=== PATIENT | female | born 1960 | race Caucasian/White ===

== ENCOUNTER 2018-11-10 21:35 | Emergency (ER) | payer OTHER ==
--- NOTE | 2018-11-10 22:21 | ED ---
General Adult HPI - General Chief complaint: Extremity Problem,Nontraumatic Stated complaint: Rt hand numbness Time Seen by Provider: 11/10/18 21:49 Source: patient Mode of arrival: ambulatory Limitations: no limitations - History of Present Illness Initial comments: Dictation was produced using [employer] dictation software. please excuse any grammatical, word or spelling errors. Chief Complaint:-year-old female past history of squamous cell carcinoma and marijuana abuse presents with right hand numbness History of Present Illness: 88-year-old female presents with right hand numbness. Patient states that approximate 45 minutes prior to arrival she began expressing the symptoms. She is brushing her hair when all of a sudden she had some numbness to her right hand. Causing her to drop the brush. Patient has history of squamous cell carcinoma. Patient has had poor follow-up with primary care physician's. She's been having on managed outpatient hypertension. Patient's history is so carcinoma. Patient does smoke marijuana regularly for appetite stimulant. She states that her symptoms slightly improved. She reports that there are no pins and needle sensations over still feels abnormal. The ROS documented in this emergency department record has been reviewed and confirmed by me. Those systems with pertinent positive or negative responses have been documented in the HPI. All other systems are other negative and/or noncontributory. PHYSICAL EXAM: General Impression: Alert and oriented x3, not in acute distress HEENT: Normocephalic atraumatic, extra-ocular movements intact, pupils equal and reactive to light bilaterally, mucous membranes moist. Cardiovascular: Heart regular rate and rhythm, S1&S2 audible, no murmurs, rubs or gallops Chest: Lungs clear to auscultation bilaterally, no rhonchi, no wheeze, no rales Abdomen: Bowel sounds present, abdomen soft, non-tender, non-distended, no organomegaly Musculoskeletal: Pulses present and equal in all extremities, no peripheral edema Motor: Power 5/5 bilaterally, no focal deficits noted Neurological: CN II-XII grossly intact, no focal motor or sensory deficits noted , no facial droop, normal finger to nose, no aphasia. Skin: Intact with no visualized rashes Psych: Normal affect and mood ED course: 58-year-old female with right hand numbness. Vital shows blood pressure 190/99, worse vital signs within acceptable limits. Patient's clinical presentation mildly suspicious of stroke or culture activated. Patient is not a TPA candidate. Patient given an initial NIH of 1. Discussed patient case of stroke neurologist.Laboratory evaluation obtained. CBC, coag panel, metabolic panel is unremarkable. Computed tomography scan of the head and chest x-ray was unremarkable. Patient still had persistent symptoms in her right upper extremity. She states that the symptoms are improved over there is still some symptoms in her right index finger. Discussed patient case with Dr. Hackett who is production trainer for [facility] recommends patient be transferred to [facility] for neurology service. Discussed patient case with Dr. Su who asked me series of questions and did not fill comfortable excepting a ER to ER transfer, he recommended patient be transferred to [facility] or other facility. He did not give me a clear reason why he is not willing to accept here to ER transfer. Discussed patient case with Kenyatta melton who is willing to accept direct admission to the floor if there is an admitting physician. We discussed patient case with Dr. Hackett of [facility] who is agreeable to direct admission. Given patient's symptomatology there is some concern that patient's symptoms reflect CVA given persistent neurologic symptoms. Patient's blood pressure is elevated at 187/85. Given that there is some suspicion of CVA no antihypertensive medications indicated at this time. Patient be transferred via private vehicle. She can be transported by family members who are reliable. Later on administrative acid conditioner callback for room number. EKG interpretation: Ventricular rate 85, normal sinus rhythm, NE interval 180, care 74, QTC 428. No NE prolongation, no QTC prolongation, no ST or T-wave changes noted. Overall, this EKG is unremarkable - Related Data Home Medications Medication Instructions Recorded Confirmed No Known Home Medications 11/10/18 11/10/18 Allergies Allergy/AdvReac Type Severity Reaction Status Date / Time codeine AdvReac Nausea & Verified 11/10/18 22:26 Vomiting Review of Systems ROS Statement: Those systems with pertinent positive or pertinent negative responses have been documented in the HPI. ROS Other: All systems not noted in ROS Statement are negative. Past Medical History Past Medical History: Cancer Additional Past Medical History / Comment(s): Squamous cell carcinoma of neck., wpw History of Any Multi-Drug Resistant Organisms: None Reported Additional Past Surgical History / Comment(s): Neck, heart surgery, WPW Past Psychological History: No Psychological Hx Reported Smoking Status: Former smoker Past Alcohol Use History: None Reported Past Drug Use History: Marijuana General Exam Limitations: no limitations Course Vital Signs 11/10/18 11/10/18 11/10/18 21:37 22:05 22:15 Temperature 97.7 F Pulse Rate 76 80 81 Respiratory 18 18 16 Rate Blood Pressure 190/99 194/92 155/103 O2 Sat by Pulse 98 97 97 Oximetry 11/10/18 11/10/18 11/10/18 22:30 22:38 23:00 Temperature Pulse Rate 77 67 69 Respiratory 18 18 18 Rate Blood Pressure 166/95 166/95 157/85 O2 Sat by Pulse 97 97 97 Oximetry 11/10/18 23:46 Temperature Pulse Rate 74 Respiratory 18 Rate Blood Pressure 187/85 O2 Sat by Pulse 94 L Oximetry Medical Decision Making - Lab Data Result diagrams: 11/10/18 22:24 11/10/18 22:24 Lab Results 11/10/18 11/10/18 11/10/18 Range/Units 22:24 22:24 22:24 WBC 8.7 (3.8-10.6) k/uL RBC 4.80 (3.80-5.40) m/uL Hgb 13.6 (11.4-16.0) gm/dL Hct 42.7 (34.0-46.0) % MCV 88.9 (80.0-100.0) fL MCH 28.4 (25.0-35.0) pg MCHC 31.9 (31.0-37.0) g/dL RDW 13.7 (11.5-15.5) % Plt Count 330 (150-450) k/uL Neutrophils % 56 % Lymphocytes % 31 % Monocytes % 6 % Eosinophils % 4 % Basophils % 1 % Neutrophils # 4.9 (1.3-7.7) k/uL Lymphocytes # 2.7 (1.0-4.8) k/uL Monocytes # 0.6 (0-1.0) k/uL Eosinophils # 0.3 (0-0.7) k/uL Basophils # 0.1 (0-0.2) k/uL PT (9.0-12.0) sec INR (<1.2) APTT (22.0-30.0) sec Sodium 140 (137-145) mmol/L Potassium 3.8 (3.5-5.1) mmol/L Chloride 103 (98-107) mmol/L Carbon Dioxide 28 (22-30) mmol/L Anion Gap 9 mmol/L BUN 14 (7-17) mg/dL Creatinine 0.71 (0.52-1.04) mg/dL Est GFR (CKD-EPI)AfAm >90 (>60 ml/min/1.73 sqM) Est GFR (CKD-EPI)NonAf >90 (>60 ml/min/1.73 sqM) Glucose 141 H (74-99) mg/dL Calcium 10.1 (8.4-10.2) mg/dL Total Bilirubin 0.4 (0.2-1.3) mg/dL AST 32 (14-36) U/L ALT 34 (9-52) U/L Alkaline Phosphatase 98 (38-126) U/L Total Creatine Kinase 63 (30-135) U/L CK-MB (CK-2) 1.1 (0.0-2.4) ng/mL CK-MB (CK-2) Rel Index 1.7 Troponin I <0.012 (0.000-0.034) ng/mL Total Protein 7.3 (6.3-8.2) g/dL Albumin 4.5 (3.5-5.0) g/dL 11/10/18 Range/Units 22:24 WBC (3.8-10.6) k/uL RBC (3.80-5.40) m/uL Hgb (11.4-16.0) gm/dL Hct (34.0-46.0) % MCV (80.0-100.0) fL MCH (25.0-35.0) pg MCHC (31.0-37.0) g/dL RDW (11.5-15.5) % Plt Count (150-450) k/uL Neutrophils % % Lymphocytes % % Monocytes % % Eosinophils % % Basophils % % Neutrophils # (1.3-7.7) k/uL Lymphocytes # (1.0-4.8) k/uL Monocytes # (0-1.0) k/uL Eosinophils # (0-0.7) k/uL Basophils # (0-0.2) k/uL PT 9.8 (9.0-12.0) sec INR 0.9 (<1.2) APTT 26.3 (22.0-30.0) sec Sodium (137-145) mmol/L Potassium (3.5-5.1) mmol/L Chloride (98-107) mmol/L Carbon Dioxide (22-30) mmol/L Anion Gap mmol/L BUN (7-17) mg/dL Creatinine (0.52-1.04) mg/dL Est GFR (CKD-EPI)AfAm (>60 ml/min/1.73 sqM) Est GFR (CKD-EPI)NonAf (>60 ml/min/1.73 sqM) Glucose (74-99) mg/dL Calcium (8.4-10.2) mg/dL Total Bilirubin (0.2-1.3) mg/dL AST (14-36) U/L ALT (9-52) U/L Alkaline Phosphatase (38-126) U/L Total Creatine Kinase (30-135) U/L CK-MB (CK-2) (0.0-2.4) ng/mL CK-MB (CK-2) Rel Index Troponin I (0.000-0.034) ng/mL Total Protein (6.3-8.2) g/dL Albumin (3.5-5.0) g/dL Disposition Clinical Impression: Right hand paresthesia Disposition: OTHER INSTITUTION NOT DEFINED Condition: Fair Referrals: Verito Lim MD [Primary Care Provider] - 1-2 days Time of Disposition: 00:06 - Out of Hospital Transfer - Req. Specs Out of Hospital Transfer - Requested Specifics: Other Emergency Center (direct admit [place] [facility])
--- NOTE | 2018-11-10 22:28 | CT ---
EXAM: CT Head Without Intravenous Contrast CLINICAL HISTORY: ITS.REASON CT Reason: Neuro Deficits TECHNIQUE: Axial computed tomography images of the head/brain without intravenous contrast. CTDI is 49.10 mGy and DLP is 1034 mGy-cm. This CT exam was performed using one or more of the following dose reduction techniques: automated exposure control, adjustment of the mA and/or kV according to patient size, and/or use of iterative reconstruction technique. COMPARISON: No relevant prior studies available. FINDINGS: Brain: Unremarkable. No hemorrhage. No significant white matter disease. No edema. Ventricles: Unremarkable. No ventriculomegaly. Bones/joints: Unremarkable. No acute fracture. Soft tissues: Unremarkable. Sinuses: Unremarkable as visualized. No acute sinusitis. Mastoid air cells: Unremarkable as visualized. No mastoid effusion. IMPRESSION: Normal head/brain CT.
[2018-11-10 22:37] LABS: Basophils # (A) 0.1 k/uL (0-0.2); Basophils % (A) 1 %; Eosinophils # (A) 0.3 k/uL (0-0.7); Eosinophils % (A) 4 %; HCT 42.7 % (34.0-46.0); HGB 13.6 gm/dL (11.4-16.0); Lymphocytes # (A) 2.7 k/uL (1.0-4.8); Lymphocytes % (A) 31 %; MCH 28.4 pg (25.0-35.0); MCHC 31.9 g/dL (31.0-37.0); MCV 88.9 fL (80.0-100.0); Monocytes # (A) 0.6 k/uL (0-1.0); Monocytes % (A) 6 %; Neutrophils # (A) 4.9 k/uL (1.3-7.7); Neutrophils % (A) 56 %; Platelet Count 330 k/uL (150-450); RDW 13.7 % (11.5-15.5); WBC 8.7 k/uL (3.8-10.6)
[2018-11-10] MEDS ORDERED: ASPIRIN 81 MG PO STA (22:42)
[2018-11-10 22:47] LABS: ALT 34 U/L (9-52); AST 32 U/L (14-36); Albumin 4.5 g/dL (3.5-5.0); Alkaline Phosphatase 98 U/L (38-126); Anion Gap 9 mmol/L; Blood Urea Nitrogen 14 mg/dL (7-17); Calcium 10.1 mg/dL (8.4-10.2); Carbon Dioxide 28 mmol/L (22-30); Chloride 103 mmol/L (98-107); Glucose 141 mg/dL (74-99); INR 0.9 (<1.2); Partial Thromboplastin Time 26.3 sec (22.0-30.0); Potassium 3.8 mmol/L (3.5-5.1); Prothrombin Time 9.8 sec (9.0-12.0); Sodium 140 mmol/L (137-145); Total Bilirubin 0.4 mg/dL (0.2-1.3); Total Protein 7.3 g/dL (6.3-8.2)
[2018-11-10 22:57] LABS: Creatine Kinase 63 U/L (30-135)
[2018-11-10 23:10] LABS: Creatine Kinase MB 1.1 ng/mL (0.0-2.4); Troponin I <0.012 ng/mL (0.000-0.034)
--- NOTE | 2018-11-10 23:27 | XR ---
EXAM: XR Chest, 1 View CLINICAL HISTORY: ITS.REASON XR Reason: altered mental status TECHNIQUE: Frontal view of the chest. COMPARISON: No relevant prior studies available. FINDINGS: Lungs: No consolidation. Biapical scarring. Nonspecific hilar fullness but no min enlargement. Pleural space: No pleural effusion or pneumothorax. Heart: No cardiomegaly. No mediastinal enlargement. Mediastinum: Trachea is unremarkable. Bones/joints: Unremarkable. Vasculature: Atherosclerotic calcifications of the ectatic thoracic aortic arch. IMPRESSION: No definite acute cardiopulmonary disease.
[2018-11-11 01:09] VITALS: BP 151/90; PULSE 68; RESP 17; TEMP 98.4
== END 2018-11-11 01:09 | disposition other institution (70) ==
LOC: EC 21:35
DX: R20.2 Paresthesia of skin (principal); Z85.828 Personal history of other malignant neoplasm of skin; Z87.891 Personal history of nicotine dependence; Z88.5 Allergy status to narcotic agent
CPT/HCPCS: 36415; 70450; 71045; 80053; 82550; 82553; 84484; 85025; 85610; 85730; 93005; 99285

== ENCOUNTER → 2020-11-04 | Outpatient (CLI) | payer OTHER ==
--- NOTE | 2020-11-22 09:06 | MM ---
Reason for exam: screening (asymptomatic). Last mammogram was performed 8 years and 7 months ago. History: Patient is postmenopausal and history of other cancer. Excisional biopsy, 2013. Physical Findings: A clinical breast exam by your physician is recommended on an annual basis and results should be correlated with mammographic findings. MG Screening Mammo w CAD Bilateral CC and MLO view(s) were taken. XCCL view(s) were taken of the right breast. Prior study comparison: April 14, 2012, mammogram, performed at [facility]. April 15, 2009, mammogram, performed at [facility]. The breast tissue is heterogeneously dense. This may lower the sensitivity of mammography. Previous mammotome biopsy in the right breast and in the left breast x 2. No significant changes when compared with prior studies. ASSESSMENT: Negative, BI-RAD 1 RECOMMENDATION: Routine screening mammogram of both breasts in 1 year.
== END | disposition home or self-care (01) ==
LOC: RADMAMWWP 16:38
PROVIDERS: ATTEND Family Medicine
DX: Z12.31 Encounter for screening mammogram for malignant neoplasm of breast (principal); Z85.89 Personal history of malignant neoplasm of other organs and systems
CPT/HCPCS: 77067

== ENCOUNTER → 2021-12-08 | Outpatient (CLI) | payer OTHER ==
--- NOTE | 2021-12-08 22:21 | CT ---
EXAMINATION TYPE: CT chest wo/w con DATE OF EXAM: 12/08/2021 COMPARISON: CT dated 07/11/2021 HISTORY: Spot on lung. Hx small squamous cell ca on neck CT DLP: 290.10 mGycm Automated exposure control for dose reduction was used. TECHNIQUE: CT scan of the chest is performed with IV Contrast, patient injected with 100 mL of Isovue 300. FINDINGS: LUNGS: Slightly larger spiculated lesion in the left lower lobe superior segment measuring 11 mm comp ared to 8.5 mm previously. The other similar spiculated lesion at the central portion of the right up per lobe is grossly stable measuring 7 mm. Elongated groundglass opacity at the posterior aspect of t he right lung base measuring up to 3.9 cm, appreciated previously. No new or progressive lung lesion otherwise. Persistent COPD changes, mainly seen in the upper lobes with bilateral apical pulmonary fi brotic changes and paraseptal emphysematous changes. Patent central airways. No pleural effusion. MEDIASTINUM: Cardiomegaly, please correlate with echocardiographic results. The pulmonary trunk measu res 2.7 cm. Arterial and coronary atherosclerotic plaques and calcifications. Severe stenosis of the proximal portion of the left subclavian artery yet patent distally. 12 mm precarinal lymph node ayala red to 10 mm previously. No other pathologically enlarged or progressive lymph nodes in the chest. OTHER: Hyperenhancing areas in the left side of the liver, possibly related to transient hepatic att enuation difference. 9 mm cyst at the posterior aspect of the pancreatic head, appreciated previously . Prominent right renal collecting system, distal obstruction cannot be excluded. Please correlate wi th renal function test. Further abdominal CT scan can be considered if clinically required. Previous median sternotomy. No gross aggressive bone lesion. Degenerative changes of the lower cervical spine. IMPRESSION: 1. Slightly larger left lower lobe superior segment lesion with stable right upper lobe lesion. Other pedroza no new or progressive lung lesion. 2. Slightly more prominent precarinal lymph node, attention follow-up. Consider correlation with PET scan results. No other definite pathologically enlarged lymph nodes in the chest. 3. The described hyper enhancing areas in the liver could be related to transient hepatic attenuation difference, suboptimally assessed by this CT scan. Further abdominal CT scan can be considered if cl inically required. Other incidental findings as described above.
== END | disposition home or self-care (01) ==
LOC: RADCTMAIN 17:23
PROVIDERS: ATTEND Radiology Radiation Oncology
DX: C34.12 Malignant neoplasm of upper lobe, left bronchus or lung (principal); R91.8 Other nonspecific abnormal finding of lung field
CPT/HCPCS: 71270; Q9967

== ENCOUNTER → 2022-03-23 | Outpatient (CLI) | payer OTHER ==
[2022-03-23 14:34] LABS: African American GFR (CKD) >90 (>60 ml/min/1.73 sqM); Blood Urea Nitrogen 16 mg/dL (7-17); Non-African American GFR(CKD) 78 (>60 ml/min/1.73 sqM)
--- NOTE | 2022-03-23 20:58 | CT ---
EXAMINATION TYPE: CT chest wo/w con DATE OF EXAM: 03/23/2022 COMPARISON: CT dated 12/08/2021 HISTORY: abnormal finding of lung field CT DLP: 205.60 mGycm Automated exposure control for dose reduction was used. TECHNIQUE: CT scan of the chest is performed without and with IV Contrast, patient injected with 100 mL of Isovu e 300. FINDINGS: LUNGS: Stable spiculated lesion in the left lower lobe superior segment measuring 11 mm. The other si milar spiculated lesion at the central portion of the right upper lobe is grossly stable measuring 7 mm. Elongated groundglass opacity at the posterior aspect of the right lung base measuring up to 2.5 cm compared to 3.9 cm. Focal infiltration/subtle fibrotic changes seen at the medial aspect of the le ft upper lobe posteriorly, possibly inflammatory/infectious, attention on follow-up. Persistent COPD changes, mainly seen in the upper lobes with bilateral apical pulmonary fibrotic changes and parasept al emphysematous changes. Patent central airways. No pleural effusion. MEDIASTINUM: The pulmonary trunk measures 2.6 cm. Arterial and coronary atherosclerotic plaques and c alcifications. Severe stenosis of the proximal portion of the left subclavian artery yet patent dista lly. 8 mm precarinal lymph node compared to 12 mm previously. No other pathologically enlarged or pro gressive lymph nodes in the chest. OTHER: Unchanged upper abdomen. Previous median sternotomy. No gross aggressive bone lesion. Degener ative changes of the lower cervical spine. IMPRESSION: 1. Stable left lower lobe superior segment lesion with stable right upper lobe lesion. Left upper lob e medial posterior area of infiltration/fibrotic changes which could represent an inflammatory/infect ious process, attention on follow-up. 2. Interval regression of the previously seen enlarged precarinal lymph node. No progressive lymphade nopathy in the chest. Other incidental findings as described above.
== END | disposition home or self-care (01) ==
LOC: RADCTMAIN 13:45
PROVIDERS: ATTEND Radiology Radiation Oncology
DX: R91.8 Other nonspecific abnormal finding of lung field (principal); R59.0 Localized enlarged lymph nodes
CPT/HCPCS: 82565; 84520; 71270; 36415; Q9967

== ENCOUNTER → 2022-06-19 | Outpatient (CLI) | payer OTHER ==
--- NOTE | 2022-06-20 08:01 | XR ---
EXAMINATION TYPE: XR KUB DATE OF EXAM: 06/19/2022 Comparison: None Clinical History: 62-year-old female bilateral flank pain and history of kidney stones, M54.50 Findings: Right lung base excluded from view. Left lung base appears clear. Supine imaging limited for assessme nt of free air. Gassy colon with mild overall snowboarding, mostly in the pelvis. Atherosclerotic gerardo cifications within the iliac arteries. Nonobstructive bowel gas pattern. Additional atherosclerotic c alcifications proximal abdominal aorta. Numerous pelvic phleboliths. Tubal ligation clips noted. Jessenia l content largely of spheres the renal shadows. Impression: Gassy colon. Bowel content largely obscures the renal shadows. Pelvic phleboliths. Atherosclerotic ca lcifications throughout.
== END | disposition home or self-care (01) ==
LOC: RADMRIMAIN 17:39
PROVIDERS: ATTEND Physician Assistant Medical
DX: I25.10 Atherosclerotic heart disease of native coronary artery without angina pectoris (principal); I87.8 Other specified disorders of veins; Z87.442 Personal history of urinary calculi
CPT/HCPCS: 74018

== ENCOUNTER → 2022-06-22 | Outpatient (CLI) | payer OTHER ==
--- NOTE | 2022-06-23 08:13 | CT ---
EXAMINATION TYPE: CT chest w con CT DLP: 105 mGycm, Automated exposure control for dose reduction was used. DATE OF EXAM: 06/22/2022 5:56 PM COMPARISON: CT chest 03/23/2022, 12/08/2021. CLINICAL INDICATION:Female, 62 years old with history of C34.12 Lung cancer; TECHNIQUE: Multiple axial images were obtained through the chest following the administration of 100 cc of Isovue 300. Coronal and sagittal reformats reviewed. FINDINGS: LUNGS/ PLEURA: Decrease in size of spiculated lesion in the left lower lobe superior segment measurin g 0.9 cm, previously 1.1 cm. Stable spiculated lesion at the central portion of the right upper lobe measuring 7 mm. Increased size of elongated groundglass opacity of the posterior aspect of the right lung base measuring 5.9 cm, previously 2.5 cm. Similar focal infiltration/subtle fibrotic changes see n of the medial aspect of the left upper lobe posteriorly which may represent an inflammatory/infecti ous process. Similar COPD changes with upper lobe predominance including pulmonary fibrotic changes a nd paraseptal emphysematous changes. No pneumothorax pleural effusion. No new pulmonary nodules. AIRWAY: Patent and unremarkable.. HEART: Size within normal limits. No pericardial effusion. Coronary arterial calcifications.. MEDIASTINUM: Stable 8 mm short axis precarinal lymph node. No other pathologically enlarged mediastin al or hilar lymph nodes. VASCULATURE: No aortic aneurysm. Atherosclerotic calcification of the aorta. Similar severe stenosis of the proximal portion left subclavian artery. MUSCULOSKELETAL: No acute osseous abnormalities. No aggressive osseous lesions. Median sternotomy wir es. SOFT TISSUES/LYMPH NODES: Unremarkable. LOWER NECK: No significant findings. UPPER ABDOMEN: No significant findings. IMPRESSION: 1. Decreased size of left lower lobe superior segment lesion with stable right upper lobe lesion. Inc reased size of posterior right lower lobe groundglass opacity which may represent an inflammatory/inf ectious process. Attention on follow-up. Unchanged left upper lobe medial posterior area of infiltrat ion/fibrotic changes which could represent inflammatory/infectious process. Attention on follow-up. 2. Stable subcentimeter precarinal lymph node. No progressive lymphadenopathy in the chest. 3. COPD changes.
== END | disposition home or self-care (01) ==
LOC: RADCTMAIN 17:16
PROVIDERS: ATTEND Radiology Radiation Oncology
DX: C34.12 Malignant neoplasm of upper lobe, left bronchus or lung (principal); J44.9 Chronic obstructive pulmonary disease, unspecified
CPT/HCPCS: 71260; Q9967

== ENCOUNTER 2022-07-22 07:28 | Emergency (ER) | payer OTHER ==
[2022-07-22 07:35] VITALS: TEMP 97.8
[2022-07-22] MEDS ORDERED: SODIUM CHLORIDE 0.9% 500 ML 500 ML IV STA (07:54)
[2022-07-22] MEDS ORDERED: SODIUM CHLORIDE 0.9% 1,000 ML IV STA (07:54)
[2022-07-22] MEDS ORDERED: KETOROLAC 15 MG/ML 1 ML VIAL IVP STA (07:55)
--- NOTE | 2022-07-22 07:59 | ED ---
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 Her stool pain is essentially sharp 8/10 severity no fevers chills nausea vomiting sweats no trauma reported. No other current complaints or modifying factors - Related Data Home Medications Medication Instructions Recorded Confirmed Aspirin EC [Ecotrin Low Dose] 81 mg PO DAILY 07/22/22 07/22/22 Previous Rx's Medication Instructions Recorded Potassium Chloride [Klor-Con M20] 20 meq PO DAILY #15 tab 07/22/22 Allergies Allergy/AdvReac Type Severity Reaction Status Date / Time codeine AdvReac Nausea & Verified 07/22/22 11:49 Vomiting Review of Systems ROS Statement: Those systems with pertinent positive or pertinent negative responses have been documented in the HPI. ROS Other: All systems not noted in ROS Statement are negative. Past Medical History Past Medical History: Cancer, Hypertension Additional Past Medical History / Comment(s): Squamous cell carcinoma of neck., Vides Parkinsons White Syndrome History of Any Multi-Drug Resistant Organisms: None Reported Additional Past Surgical History / Comment(s): Neck, heart surgery, WPW Past Psychological History: No Psychological Hx Reported Smoking Status: Former smoker Past Alcohol Use History: None Reported Past Drug Use History: Marijuana General Exam - General Exam Comments Initial Comments: This is a well-developed frail-appearing female who is awake alert oriented 4 Limitations: no limitations General appearance: alert, in no apparent distress Head exam: Present: atraumatic, normocephalic, normal inspection Eye exam: Present: normal appearance, PERRL, EOMI. Absent: scleral icterus, conjunctival injection, periorbital swelling ENT exam: Present: mucous membranes dry Neck exam: Present: normal inspection, full ROM. Absent: tenderness, meningismus, lymphadenopathy Respiratory exam: Present: normal lung sounds bilaterally. Absent: respiratory distress, wheezes, rales, rhonchi, stridor Cardiovascular Exam: Present: regular rate, normal rhythm, normal heart sounds. Absent: systolic murmur, diastolic murmur, rubs, gallop, clicks GI/Abdominal exam: Present: soft, normal bowel sounds. Absent: distended, tenderness, guarding, rebound, rigid Rectal exam: Present: deferred Extremities exam: Present: normal inspection, tenderness, normal capillary refill, other (Tenderness palpation of the sciatic outlet on the right side with tenderness palpation limited range of motion secondary to pain.). Absent: full ROM, pedal edema, joint swelling, calf tenderness Back exam: Present: normal inspection. Absent: tenderness, muscle spasm Neurological exam: Present: alert, oriented X3, CN II-XII intact Psychiatric exam: Present: normal affect, normal mood Skin exam: Present: warm, dry, intact, normal color. Absent: rash Course Vital Signs 07/22/22 07/22/22 07/22/22 07:32 10:00 12:29 Temperature 97.8 F Pulse Rate 92 88 94 Respiratory 16 18 16 Rate Blood Pressure 202/82 182/78 133/96 O2 Sat by Pulse 98 98 99 Oximetry - Reevaluation(s) Reevaluation #1: 07/22/22 11:17 Patient states she's feeling much improved at this time she is actively getting IV fluids and potassium at this time. Due to the presentation I did want to admit her to the hospital she does not want to be admitted this time she'll sec go home and follow-up with orthopedics palpation. Family members present and Is in agreement. Medical Decision Making - Medical Decision Making I did discuss the findings with the patient multiple family members. I did recommend admission the patient does not want be admitted at this time. To instill it to go home and follow palpation for evaluation of the hip pain. The presentation appears be consistent with sciatica or there is a CT finding of fluid around the hip patient has no fever the white blood cell count is elevated likely a reactive phenomenon. Does not appear to be infectious at this time patient agrees that she is on a stay he will follow-up outpatient she was hypokalemic did recommend oral medication and follow-up with her doctor and increase oral fluids. Patient does have increased range of motion with movement of the right hip now which she did not have earlier no pain with motion. She does have still some remaining pain on palpation of the sciatic fell at. - Lab Data Result diagrams: 07/22/22 08:03 07/22/22 08:03 Lab Results 07/22/22 07/22/22 07/22/22 Range/Units 08:03 08:03 08:03 WBC 13.6 H (3.8-10.6) k/uL RBC 4.68 (3.80-5.40) m/uL Hgb 13.5 (11.4-16.0) gm/dL Hct 41.6 (34.0-46.0) % MCV 88.8 (80.0-100.0) fL MCH 28.9 (25.0-35.0) pg MCHC 32.5 (31.0-37.0) g/dL RDW 13.3 (11.5-15.5) % Plt Count 327 (150-450) k/uL MPV 7.6 Neutrophils % 86 % Lymphocytes % 8 % Monocytes % 4 % Eosinophils % 1 % Basophils % 0 % Neutrophils # 11.7 H (1.3-7.7) k/uL Lymphocytes # 1.0 (1.0-4.8) k/uL Monocytes # 0.6 (0-1.0) k/uL Eosinophils # 0.1 (0-0.7) k/uL Basophils # 0.1 (0-0.2) k/uL Sodium 140 (137-145) mmol/L Potassium 3.0 L (3.5-5.1) mmol/L Chloride 102 (98-107) mmol/L Carbon Dioxide 27 (22-30) mmol/L Anion Gap 11 mmol/L BUN 11 (7-17) mg/dL Creatinine 0.60 (0.52-1.04) mg/dL Est GFR (CKD-EPI)AfAm >90 (>60 ml/min/1.73 sqM) Est GFR (CKD-EPI)NonAf >90 (>60 ml/min/1.73 sqM) Glucose 118 H (74-99) mg/dL Uric Acid 4.3 (3.7-7.4) mg/dL Calcium 9.3 (8.4-10.2) mg/dL Magnesium 1.6 (1.6-2.3) mg/dL Total Bilirubin 0.7 (0.2-1.3) mg/dL AST 32 (14-36) U/L ALT 25 (4-34) U/L Alkaline Phosphatase 117 (38-126) U/L Total Protein 7.0 (6.3-8.2) g/dL Albumin 4.6 (3.5-5.0) g/dL - Radiology Data Radiology results: report reviewed (Imaging reviewed as well as reports evidence of degenerative changes in the low back some fluid collection around the right hip please see the complete report), image reviewed Disposition Clinical Impression: Sciatica, Hypokalemia, Dehydration Disposition: HOME SELF-CARE Condition: Good Instructions (If sedation given, give patient instructions): Hypokalemia (ED), Dehydration (ED), Sciatica (ED) Prescriptions: Potassium Chloride [Klor-Con M20] 20 meq PO DAILY #15 tab Is patient prescribed a controlled substance at d/c from ED?: No Referrals: Shakira Way MD [Primary Care Provider] - 1-2 days Decision Date: 07/22/22 Decision Time: 13:00
[2022-07-22 08:16] LABS: Basophils # (A) 0.1 k/uL (0-0.2); Basophils % (A) 0 %; Eosinophils # (A) 0.1 k/uL (0-0.7); Eosinophils % (A) 1 %; HCT 41.6 % (34.0-46.0); HGB 13.5 gm/dL (11.4-16.0); Lymphocytes % (A) 8 %; MCH 28.9 pg (25.0-35.0); MCHC 32.5 g/dL (31.0-37.0); MCV 88.8 fL (80.0-100.0); Mean Platelet Volume 7.6; Monocytes # (A) 0.6 k/uL (0-1.0); Monocytes % (A) 4 %; Neutrophils # (A) 11.7 k/uL (1.3-7.7); Neutrophils % (A) 86 %; Platelet Count 327 k/uL (150-450); RBC 4.68 m/uL (3.80-5.40); RDW 13.3 % (11.5-15.5); WBC 13.6 k/uL (3.8-10.6)
[2022-07-22 08:25] LABS: ALT 25 U/L (4-34); AST 32 U/L (14-36); African American GFR (CKD) >90 (>60 ml/min/1.73 sqM); Albumin 4.6 g/dL (3.5-5.0); Alkaline Phosphatase 117 U/L (38-126); Anion Gap 11 mmol/L; Blood Urea Nitrogen 11 mg/dL (7-17); Calcium 9.3 mg/dL (8.4-10.2); Carbon Dioxide 27 mmol/L (22-30); Chloride 102 mmol/L (98-107); Glucose 118 mg/dL (74-99); Magnesium 1.6 mg/dL (1.6-2.3); Non-African American GFR(CKD) >90 (>60 ml/min/1.73 sqM); Sodium 140 mmol/L (137-145); Total Bilirubin 0.7 mg/dL (0.2-1.3)
--- NOTE | 2022-07-22 09:19 | CT ---
EXAMINATION TYPE: CT lumbar spine wo con, CT hip RT wo con DATE OF EXAM: 07/22/2022 COMPARISON: None HISTORY: 62-year-old female Pain, history of metastatic squamous cell cancer (accession [id number]), Ri ght hip pain, hx of metastatic squamous cell (accession [id number]) TECHNIQUE: Contiguous axial scanning of the lumbar spine and right hip without IV contrast. Coronal a nd sagittal reconstructions performed. CT DLP: 392.1 (accession [id number]), 250.5 (accession [id number]) mGycm Automated exposure control for dose reduction was used. FINDINGS: LUMBAR SPINE: Moderate to severe atherosclerotic calcifications throughout the abdominal aorta and iliac arteries w ith segmental moderate stenoses. Fullness of bilateral renal collecting systems. Correlate with patie nt's kidney function. There is generalized osteopenia. Vertebral body heights are preserved. Alignment is maintained. Moderate degenerative disc disease L4-L5 and mild to moderate elsewhere throughout the lumbar spine. Disc bulging is present multiple levels in the lumbar spine impressing on the ventral thecal sac but not contributing to any significant spinal canal stenosis. Facet arthropathy mid to lower lumbar spine. On the left, changes old and mild neuroforaminal stenoses at L3-L4 and L4-L5. On the right, changes result in minimal inferior neural foraminal narrowing at L2-L3 and L3-L4. No di screte lytic destruction is clearly identified. RIGHT HIP: There is mild to moderate degenerative joint space narrowing and marginal spurring at the right hip. We note some calcifications along the joint space possibly involving the articular cartilage there is also a moderate hip joint effusion. No bony destructive process, significant soft tissue abnormality, or acute fracture seen. IMPRESSION: LUMBAR SPINE: 1. Moderate degenerative disc disease throughout, greatest at L4-L5. Bulging discs are present. No la rge focal disc herniation or significant spinal canal stenosis. 2. Facet arthropathy mid to lower lumbar spine. No vertebral compression collapse or malalignment. Va riable minimal to mild bilateral neural foraminal narrowing as outlined above, left greater than righ t. 3. Fullness of the bilateral renal collecting systems may be transient. There is prominent fullness o f the bladder which may be contributing to this. Ensure that the patient is able to void normally. 4. Moderate to severe atherosclerotic changes throughout the abdominal aorta and iliac arteries. RIGHT HIP: 5. [id number] right hip OA. We note calcifications along the right hip joint space which may be seen with CPPD or gout. There is an accompanying moderate joint effusion. If concern for crystalline arthropathy, arthrocentesis can be considered. 6. Otherwise, no acute osseous abnormality seen.
[2022-07-22] MEDS ORDERED: POTASSIUM CHLORIDE 20 MEQ in WATER FOR INJECTION 1 100ML.BAG IVPB STA (10:01)
[2022-07-22 12:33] VITALS: BP 133/96; PULSE 94; RESP 16
== END 2022-07-22 13:24 | disposition home or self-care (01) ==
LOC: EC 07:28
DX: E86.0 Dehydration (principal); E87.6 Hypokalemia; I10 Essential (primary) hypertension; Z87.891 Personal history of nicotine dependence; Z88.5 Allergy status to narcotic agent
CPT/HCPCS: 99284 ×2; 96365 ×2; 96366 ×2; 96375 ×2; 96361 ×2; 36415; 80053; 83735; 84550; 85025; 72131; 73700; J3480; J1885

== ENCOUNTER → 2022-10-05 | Outpatient (CLI) | payer OTHER ==
[2022-10-05 16:21] LABS: African American GFR (CKD) >90 (>60 ml/min/1.73 sqM); Blood Urea Nitrogen 23 mg/dL (7-17); Non-African American GFR(CKD) 86 (>60 ml/min/1.73 sqM)
--- NOTE | 2022-10-05 17:13 | CT ---
EXAMINATION TYPE: CT chest w con CT DLP: 114.6 mGycm, Automated exposure control for dose reduction was used. DATE OF EXAM: 10/05/2022 4:49 PM COMPARISON: CT chest 06/22/2022, 03/23/2022 and 12/08/2021. CT 08/12/2021 CLINICAL INDICATION:Female, 62 years old with history of C34.12 MALIG NEOPLASM LEFT BRONCHUS OR LUNG; , Malignant neoplasm of upper lobe left bronchus/lung. TECHNIQUE: Multiple axial images were obtained through the chest. Sagittal and coronal reformats were created for review. Contrast used:80cc mL of Isovue 300 with IV Contrast Oral contrast used: none. FINDINGS: LUNGS/ PLEURA: Similar morphology to the right upper lobe consolidative area with some essentially measuring up to 5 mm similar to (series 7 image 31) most recent prior on 06/21/2022. However on 12/08/2021 and there is l ess central solid component The left lower lobe superior segment is now predominantly groundglass in appearance. Previously on and on 12/08/2021 it was more and began to become groundglass on 06/22/2022 and is predominantly groundglass appearance on today's exam. Mild centrilobular and paraseptal emphysema changes. Apical blebs are present. There is left major fi ssure suspected intrafissural lymph nodes. AIRWAY: Patent and unremarkable. HEART: Size within normal limits. MEDIASTINUM: No gross evidence of adenopathy. VASCULATURE: No aortic aneurysm. Atherosclerosis of the arterial vasculature. MUSCULOSKELETAL: No acute osseous abnormalities. Mild multilevel disc degeneration changes throughout the spine. Sternotomy wires are present. SOFT TISSUES/LYMPH NODES: Unremarkable. LOWER NECK: No significant findings. UPPER ABDOMEN: No significant findings. IMPRESSION: 1. Right upper lung nodule with more solid component comparing to priors dating back to 12/08/2021. Co ntinued attention on follow-up imaging is recommended. 2. Left lower lungs superior segment nodule seen on prior PET 08/12/[address] chest 12/08/2021 has a more ground glass appearance on today's exam. Continued attention on follow-up imaging is recommended . 3. Emphysema changes.
== END | disposition home or self-care (01) ==
LOC: RADCTMAIN 15:33
PROVIDERS: ATTEND Radiology Radiation Oncology
DX: C34.12 Malignant neoplasm of upper lobe, left bronchus or lung (principal); J43.2 Centrilobular emphysema; R91.8 Other nonspecific abnormal finding of lung field
CPT/HCPCS: 82565; 84520; 71260; 36415; Q9967

== ENCOUNTER → 2023-03-08 | Outpatient (CLI) | payer OTHER ==
--- NOTE | 2023-03-09 09:03 | CT ---
EXAMINATION TYPE: CT chest w con DATE OF EXAM: 03/08/2023 COMPARISON: 10/05/2022, 06/22/2022 HISTORY: f/u lung CA CT DLP: 91.5 mGycm Automated exposure control for dose reduction was used. TECHNIQUE: CT scan of the chest is performed with IV Contrast, patient injected with 100 mL of Isovue 300. MIP Images are created on CT scanner and reviewed. 3D reconstructed images are created on an independent workstation and reviewed. FINDINGS: LUNGS: There is a spiculated density seen in the right upper lobe measuring 8 mm. Subsegmental changes seen in the left superior segment lower lobe medially measuring approximately 9 mm stable from multiple prior exams. There is no evidence of consolidative pneumonia. There is diffuse centrilobular emphysema and parasep tahir emphysematous changes also noted. Slender stable left apical pleural-based thickening Mild centrilobular and paraseptal emphysema changes. Apical blebs are present. There is left major fi ssure suspected intrafissural lymph nodes. MEDIASTINUM: There are no greater than 1 cm hilar or mediastinal lymph nodes. No pericardial effusi on is seen. Sternotomy changes are seen. Mild atherosclerotic changes of aorta which is of normal ca liber. There is coronary artery calcification. OTHER: There is a small hiatal hernia. Hypertrophic degenerative changes of the spine. Severe stenos is of the proximal left subclavian artery suspected. IMPRESSION: 1. Diffuse emphysematous changes with a 8 mm spiculated nodule in the right upper lobe previously susana sured 5 mm. Recommend PET/CT. 2. Stable left apical pleural-based thickening. 3. Subsegmental consolidation\nodularity in the superior segment left lower lobe is stable multiple p rior exams.
== END | disposition home or self-care (01) ==
LOC: RADCTMAIN 17:00
PROVIDERS: ATTEND Radiology Radiation Oncology
DX: C34.12 Malignant neoplasm of upper lobe, left bronchus or lung (principal); J43.9 Emphysema, unspecified; R91.8 Other nonspecific abnormal finding of lung field; Z92.3 Personal history of irradiation; Z85.89 Personal history of malignant neoplasm of other organs and systems
CPT/HCPCS: 71260; Q9967

== ENCOUNTER → 2023-05-08 | Outpatient (CLI) | payer OTHER ==
--- NOTE | 2023-05-09 09:37 | PE ---
EXAMINATION TYPE: PET CT fusion skull to thigh DATE OF EXAM: 05/08/2023 CLINICAL INDICATION:Female, 63 years old with history of R91.8; TECHNIQUE: Following the intravenous administration of 8.5 mCi of F-18 FDG, whole body images are p erformed from the skull base to the midthigh. Images are reviewed on the computer in the coronal, ax ial, and sagittal planes. Reconstructed rotating images are created on independent workstation and r eviewed on the computer. A non-contrast CT is performed in conjunction with the PET scan. Glucose l evel 110 mg/dL COMPARISON: CT 03/23/2023, 10-26, PET/CT 08/12/2021, FINDINGS: Mediastinal SUV mean is 1.8. Hepatic parenchyma SUV mean is 2.2. SKULL BASE AND NECK: No suspicious radiotracer activity. CHEST, MEDIASTINUM, AND HILAR REGION: * Right upper lung area of interstitial thickening with suspected groundglass nodule measuring up to 18 x 16 mm Max SUV 1.2. Multiple larger airways closely approximates this region. * Groundglass area in the superior segment of the left lower lobe max SUV 1.8. Has a similar streaky appearance on sagittal imaging. ABDOMEN AND PELVIS: No suspicious radiotracer activity. MUSCULOSKELETAL STRUCTURES: No suspicious radiotracer activity. OTHER CT: Atherosclerosis of the arterial vasculature. 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 Lefty eptal emphysema changes are present. IMPRESSION: 1. Right upper lung nodule with FDG activity below background levels. This is likely due to low sign al, as it is mostly cystic/groundglass in appearance. Finding may represent minimally invasive bronch oalveolar carcinoma. Continued surveillance with CT is recommended in 3 months. A larger bronchus maribel sely approximates this region consider bronchoscopy and tissue sampling. 2. Left lower lobe superior segment mild FDG activity which is at background levels. Continued surve illance with CT imaging.
== END | disposition home or self-care (01) ==
LOC: RADPETMAIN 10:06
PROVIDERS: ATTEND Radiology Radiation Oncology
DX: R91.8 Other nonspecific abnormal finding of lung field (principal); Z85.89 Personal history of malignant neoplasm of other organs and systems; Z92.3 Personal history of irradiation; Z85.9 Personal history of malignant neoplasm, unspecified
CPT/HCPCS: 78815; A9552

== ENCOUNTER 2023-11-05 17:23 | Emergency (ER) | payer BC ==
[2023-11-05 17:52] VITALS: TEMP 98.4
--- NOTE | 2023-11-05 18:04 | ED ---
URI HPI - General Source: patient, RN notes reviewed Mode of arrival: ambulatory Limitations: no limitations <Maylin Chino - Last Filed: 11/05/23 18:03> - History of Present Illness MD Complaint: fever, cough, sore throat, nasal congestion -: week(s) Severity: moderate Severity scale (1-10): 7 Consistency: intermittent Improves With: nothing Context: sick contacts Associated Symptoms: fever, chills, nasal congestion, sore throat, cough Treatments Prior to Arrival: none <Dada Tai - Last Filed: 11/17/23 21:48> - General Chief Complaint: Upper Respiratory Infection Stated Complaint: Weakness Time Seen by Provider: 11/05/23 18:03 - History of Present Illness Initial Comments: This is a 63-year-old female who presents to the emergency department for coughing, congestion, and weakness over the last 1 week. Denies any chest pain or shortness of breath. She does report a history of lung cancer. Denies any fevers or chills. (Maylin Chino) This is a 63-year-old female to ER for cough congestion weakness increasing over the past week. She does deny any active fever but does occasionally have sweats and chills. Known history of lung cancer (Dada Tai) - Related Data Home Medications Medication Instructions Recorded Confirmed Aspirin EC [Ecotrin Low Dose] 81 mg PO DAILY 07/22/22 07/22/22 Previous Rx's Medication Instructions Recorded Potassium Chloride [Klor-Con M20] 20 meq PO DAILY #15 tab 07/22/22 Amoxic-Pot Clav 400-57Mg/5Ml 12.5 ml PO Q12H #250 ml 11/05/23 [Augmentin 400-57 mg/5 ml Susp] Allergies Allergy/AdvReac Type Severity Reaction Status Date / Time codeine AdvReac Nausea & Verified 11/05/23 17:30 Vomiting Review of Systems ROS Other: All systems not noted in ROS Statement are negative. <Maylin Chino - Last Filed: 11/05/23 18:03> ROS Other: All systems not noted in ROS Statement are negative. <Dada Tai - Last Filed: 11/17/23 21:48> ROS Statement: Those systems with pertinent positive or pertinent negative responses have been documented in the HPI. Past Medical History Past Medical History: Cancer, Hypertension Additional Past Medical History / Comment(s): Squamous cell carcinoma of neck., Vides Parkinsons White Syndrome History of Any Multi-Drug Resistant Organisms: None Reported Additional Past Surgical History / Comment(s): Neck, heart surgery, WPW Past Psychological History: No Psychological Hx Reported Smoking Status: Former smoker Past Alcohol Use History: None Reported Past Drug Use History: Marijuana <Maylin Chino - Last Filed: 11/05/23 18:03> General Exam Limitations: no limitations <Maylin Chino - Last Filed: 11/05/23 18:03> General appearance: alert, in no apparent distress, anxious Head exam: Present: atraumatic, normocephalic, normal inspection Eye exam: Present: normal appearance, PERRL, EOMI. Absent: scleral icterus, conjunctival injection, periorbital swelling ENT exam: Present: normal exam, mucous membranes moist Neck exam: Present: normal inspection. Absent: tenderness, meningismus, lymphadenopathy Respiratory exam: Present: normal lung sounds bilaterally. Absent: respiratory distress, wheezes, rales, rhonchi, stridor Cardiovascular Exam: Present: normal rhythm, tachycardia, normal heart sounds. Absent: systolic murmur, diastolic murmur, rubs, gallop, clicks GI/Abdominal exam: Present: soft, normal bowel sounds. Absent: distended, tenderness, guarding, rebound, rigid Extremities exam: Present: normal inspection, full ROM, normal capillary refill. Absent: tenderness, pedal edema, joint swelling, calf tenderness Back exam: Present: normal inspection Neurological exam: Present: alert, oriented X3, CN II-XII intact Psychiatric exam: Present: normal affect, normal mood Skin exam: Present: warm, dry, intact, normal color. Absent: rash <Dada Tai - Last Filed: 11/17/23 21:48> - General Exam Comments Initial Comments: Visual Physical Exam Vital signs reviewed General: Well-appearing, nontoxic, no acute distress. Head: Normocephalic, atraumatic Eyes: PERRLA, EOMI ENT: Airway patent Chest: Nonlabored breathing Skin: No visual rash, normal skin tone Neuro: Alert and oriented 3 Musculoskeletal: No gross abnormalities (Maylin Chino) Course <Dada Tai - Last Filed: 11/17/23 21:48> Vital Signs 11/05/23 11/05/23 11/05/23 17:27 18:53 20:40 Temperature 98.4 F Pulse Rate 110 H 99 Respiratory 18 20 16 Rate Blood Pressure 116/71 189/78 O2 Sat by Pulse 96 99 Oximetry - Reevaluation(s) Reevaluation #1: Medical records reviewed (Dada Tai) Reevaluation #2: patient symptoms are improved but intermittent (Dada Tai) Reevaluation #3: Patient informed of results and questions answered (Dada Tai) Reevaluation #4: Was pt. sent in by a medical professional or institution (PENG Stephens, PRODUCE CLERK, urgent care, hospital, or [facility]...) When possible be specific @ -no Did you speak to anyone other than the patient for history (EMS, parent, family, police, friend...)? What history was obtained from this source @ -no Did you review nursing and triage notes (agree or disagree)? Why? @ -agree Are old charts reviewed (outside hosp., previous admission, EMS record, old EKG, old radiological studies, urgent care reports/EKG's, [facility] records)? Report findings @ -yes Differential Diagnosis (chest pain, altered mental status, abdominal pain women, abdominal pain men, vaginal bleeding, weakness, fever, dyspnea, syncope, headache, dizziness, GI bleed, back pain, seizure, CVA, palpatations, mental health, musculoskeletal)? @ -prior EKG interpreted by me (3pts min.). @ -yes X-rays interpreted by me (1pt min.). @ -yes negative for acute disease CT interpreted by me (1pt min.). @ -no U/S interpreted by me (1pt. min.). @ -no What testing was considered but not performed or refused? (CT, X-rays, U/S, labs)? Why? @ -none What meds were considered but not given or refused? Why? @ -none Did you discuss the management of the patient with other professionals (professionals i.e. PENG Stephens, PRODUCE CLERK, lab, RT, psych nurse, social work supervisor, furniture and bedding inspector, teacher, science and operations officer, immigration case worker)? Give summary @ -no Was smoking cessation discussed for >3mins.? @ -no Was critical care preformed (if so, how long)? @ -no Were there social determinants of health that impacted care today? How? (Homelessness, low income, unemployed, alcoholism, drug addiction, transportation, low edu. Level, literacy, decrease access to med. care, penitentiary, rehab)? @ -none Was there de-escalation of care discussed even if they declined (Discuss DNR or withdrawal of care, Hospice)? DNR status @ -no What co-morbidities impacted this encounter? (DM, HTN, Smoking, COPD, CAD, Cancer, CVA, ARF, Chemo, Hep., AIDS, mental health diagnosis, sleep apnea, morbid obesity)? @ -none Was patient admitted / discharged? Hospital course, mention meds given and route, prescriptions, significant lab abnormalities, going to OR and other pertinent info. @ - 63 female to ER for evaluation of cough congestion oppressed reflection of fever. Patient refusing hospital admission at this time will be discharged home with outpatient antibiotics Discharge Undiagnosed new problem with uncertain prognosis? @ -no Drug Therapy requiring intensive monitoring for toxicity (Heparin, Nitro, Insulin, Cardizem)? @ -no Were any procedures done? @ -no Diagnosis/symptom? @ -Fever, pneumonia Acute, or Chronic, or Acute on Chronic? @ -Acute Uncomplicated (without systemic symptoms) or Complicated (systemic symptoms)? @ -Complicated Side effects of treatment? @ -no Exacerbation, Progression, or Severe Exacerbation? @ -exacerbation Poses a threat to life or bodily function? How? (Chest pain, [place], [place], pneumonia, PE, COPD, DKA, ARF, appy, cholecystitis, CVA, Diverticulitis, Homicidal, Suicidal, threat to staff... and all critical care pts) @ -yes extremes of age, cancer with fever and pneumonia (Dada Tai) Reevaluation #5: Differential Dyspnea: Coronary syndrome, arrhythmia, tamponade, asthma, COPD, pulmonary embolism, pneumonia, pneumothorax, pulmonary effusion, anaphylaxis, diabetic ketoacidosis, flailed chest, pulmonary contusion, diaphragmatic rupture, anemia, neuromuscular, this is not meant to be an all-inclusive list. (Dada Tai) - Consultations Consultation #1: Admitting physicians agreed to admit this patient (Dada Tai) Medical Decision Making <Maylin Chino - Last Filed: 11/05/23 18:03> - Radiology Data Radiology results: report reviewed (Chest x-ray is positive for pneumonia), image reviewed <Dada Tai - Last Filed: 11/17/23 21:48> - Medical Decision Making I performed the QuickNote portion of this chart. Signed Maylin Chino PA-C. (Maylin Chino) 63 female to ER for evaluation of cough congestion oppressed reflection of fever. Patient refusing hospital admission at this time will be discharged home with outpatient antibiotics (Dada Tai) - Lab Data Lab Results 11/05/23 Range/Units 17:44 Influenza Type A (PCR) Not Detected (Not Detectd) Influenza Type B (PCR) Not Detected (Not Detectd) RSV (PCR) Not Detected (Not Detectd) SARS-CoV-2 (PCR) Not Detected (Not Detectd) Disposition <Maylin Chino - Last Filed: 11/05/23 18:03> Is patient prescribed a controlled substance at d/c from ED?: No Time of Disposition: 19:35 <Dada Tai - Last Filed: 11/17/23 21:48> Clinical Impression: Pneumonia, Community acquired pneumonia Disposition: HOME SELF-CARE Condition: Fair Instructions (If sedation given, give patient instructions): Community Acquired Pneumonia (ED) Prescriptions: Amoxic-Pot Clav 400-57Mg/5Ml [Augmentin 400-57 mg/5 ml Susp] 12.5 ml PO Q12H #250 ml Referrals: Shakira Way MD [Primary Care Provider] - 1-2 days
--- NOTE | 2023-11-05 18:20 | XR ---
EXAMINATION TYPE: XR chest 2V DATE OF EXAM: 11/05/2023 COMPARISON: 11/10/2018 HISTORY: Shortness of breath TECHNIQUE: Frontal and lateral views of the chest are obtained. FINDINGS: Scattered senescent parenchymal changes noted. Hyperinflation compatible with COPD. There is evidence of left lower lobe infiltrate. Correlate for pneumonia. Heart size is stable. Mediastinal structures are stable and grossly unremarkable. No evidence for hilar prominence. Degenerative changes dorsal spine. IMPRESSION: 1. There is evidence of left lower lobe infiltrate. Correlate for pneumonia.
[2023-11-05] MEDS: dexAMETHasone 2 MG TAB PO STA (20:28)
[2023-11-05] MEDS: AMOXIC-POT CLAV 875-125MG 1 EACH TAB PO STA (20:28)
[2023-11-05] MEDS: DOXYCYCLINE 100 MG CAP PO STA (20:28)
[2023-11-05] MEDS: AMOXIC-POT CLAV 875MG STARTER PACK 2 TAB BTL PO STA (20:37)
[2023-11-05 20:55] VITALS: BP 189/78; PULSE 99; RESP 16
[2023-11-05] MEDS: AMOXIC-POT CLAV 200-28.5MG/5ML 100 ML BOTTLE PO ONE (21:21)
== END 2023-11-05 21:24 | disposition home or self-care (01) ==
LOC: EC 17:23
DX: J18.9 Pneumonia, unspecified organism (principal); I10 Essential (primary) hypertension; F12.90 Cannabis use, unspecified, uncomplicated; Z87.891 Personal history of nicotine dependence; Z20.822 Contact with and (suspected) exposure to COVID-19
CPT/HCPCS: 87636; 71046; 99285; J8540

== ENCOUNTER → 2023-11-15 | Outpatient (CLI) | payer BC ==
--- NOTE | 2023-11-18 15:16 | CT ---
EXAMINATION TYPE: CT chest wo/w con DATE OF EXAM: 11/15/2023 COMPARISON: 03/08/2023 HISTORY: abn lung findings CT DLP: 484 mGycm, Automated exposure control for dose reduction was used. CONTRAST: Performed injected with 100 mL of Isovue 300. TECHNIQUE: Axial images were obtained at 5 mm thick sections. Reconstructed images are reviewed on Construct computer in the coronal plane. Pre and postcontrast imaging is performed. FINDINGS: Portion of the thyroid visualized is normal. Some pneumonitis type change appears to be posterior to the aortic arch on the left and at the right upper lung field. Example image series 4 image 20. On the right this is location of the previous nodu le which is not appreciated on the current examination. There is a 1.3 cm lymph node in the pretracheal space above the stefania. This has enlarged from the c omparison. The ascending aorta diameter at the level of the main pulmonary artery is 3.4 cm. The main pulmonary artery diameter at the bifurcation is 2.3 cm. Coronary artery calcification is present. No pericardi al effusion is evident. Limited CT sections are obtained through the upper abdomen. Abdomen is essentially unremarkable. IMPRESSION: 1. Residual increased lung marking changes at the right apex. Prior nodule is not identified 2. Enlarging lower pretracheal lymph node.
== END | disposition home or self-care (01) ==
LOC: RADCTMAIN 11:42
PROVIDERS: ATTEND Radiology Radiation Oncology
DX: R91.8 Other nonspecific abnormal finding of lung field (principal); C34.12 Malignant neoplasm of upper lobe, left bronchus or lung; Z85.89 Personal history of malignant neoplasm of other organs and systems
CPT/HCPCS: 71270; Q9967

== ENCOUNTER → 2024-06-01 | Outpatient (CLI) | payer BC ==
--- NOTE | 2024-06-01 14:03 | CT ---
EXAMINATION TYPE: CT chest w con DATE OF EXAM: 06/01/2024 COMPARISON: 11/15/2023 HISTORY: lung ca CT DLP: 233 mGycm Automated exposure control for dose reduction was used. TECHNIQUE: CT scan of the chest is performed with IV Contrast, patient injected with 100 mL of Isovue 300. MIP Images are created on CT scanner and reviewed. 3D reconstructed images are created on an independent workstation and reviewed. FINDINGS: LUNGS: Severe emphysematous changes with a spiculated nodule in the right upper lobe measuring 1.5 cm . No consolidative pneumonia. No pulmonary edema. Interlobular septal thickening in the lung apices w ith apical fibrotic changes. Additional left upper lobe of the soft tissue density posterior to the a ortic arch measuring 1.5 cm. Difficult to determine if this is neoplastic or postinflammatory. PET sc an recommended. MEDIASTINUM: Mild coronary artery calcification. Atherosclerotic change of the aorta. No pathologic a denopathy. There is be occlusion or severe stenosis of the origin of the subclavian artery correlate for subclavian steal phenomenon. Median sternotomy changes. OTHER: Liver low attenuation correlate for hepatic steatosis. Small hiatal hernia. Post median hopper otomy changes. IMPRESSION: 1. There is a 1.5 cm spiculated nodule right upper lobe and 1.6 cm soft tissue density in the left up per lobe posteriorly. Underlying malignancy in the differential diagnosis. PET CT scan recommended. 2. COPD. 3. 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 Follow-up recommendations for incidental pulmonary nodules are per [employer] [place] [employer] or [employer] [place] [employer].
== END | disposition home or self-care (01) ==
LOC: RADCTMAIN 12:39
PROVIDERS: ATTEND Radiology Radiation Oncology
DX: C34.12 Malignant neoplasm of upper lobe, left bronchus or lung (principal); J44.9 Chronic obstructive pulmonary disease, unspecified; R91.1 Solitary pulmonary nodule; I77.1 Stricture of artery; J98.4 Other disorders of lung
CPT/HCPCS: 71260; Q9967

== ENCOUNTER → 2024-06-22 | Outpatient (CLI) | payer BC ==
--- NOTE | 2024-07-03 00:02 | PE ---
EXAMINATION TYPE: PET CT fusion skull to thigh DATE OF EXAM: 06/22/2024 COMPARISON: CT chest 824 Prior PET/CT: 05/08/2023 HISTORY: Solitary pulmonary nodule TECHNIQUE: Following the intravenous administration of 10.54 mCi of F-18 FDG, whole body images are performed from the skull base to the midthigh. Images are reviewed on the computer in the coronal, a xial, and sagittal planes. Reconstructed rotating images are created on independent workstation and reviewed on the computer. A localization and attenuation correction CT is performed in conjunction with the PET scan. DLP: 133.13 mGycm SCAN: Subsequent Blood glucose: 123 mg/dL Average Mediastinum SUV: 1.85 Average Liver SUV: 2.42 FINDINGS: NECK: No abnormal uptake THORAX: There is a solitary pulmonary nodule in the anterior right upper lobe, image 68, SUV 3.98. Th is correlates with the nodule on CT exam. ABDOMEN: No abnormal uptake PELVIS: No abnormal uptake. Uptake within the rectum is felt more likely be physiologic. Underlying n eoplasm should be evaluated for in light of the patient's chest. OSSEOUS STRUCTURES: No abnormal uptake LOCALIZATION CT: Emphysematous changes are within the lung [place]. Vascular calcifications through t he aorta. COMPARISON: Uptake within the right upper lobe nodule has increased over the interval. Uptake through the rectum and distal sigmoid colon appear similar to prior study. IMPRESSION: 1. Solitary pulmonary nodule with abnormal uptake suspicious for primary or possibly metastatic lesio n. 2. Uptake within the region of the rectum most likely physiologic. Evaluation for possible neoplasm a s region is recommended. [facility], , 07/03/2024 12:00 AM
== END | disposition home or self-care (01) ==
LOC: RADPETMAIN 11:48
PROVIDERS: ATTEND Radiology Radiation Oncology
DX: C34.12 Malignant neoplasm of upper lobe, left bronchus or lung (principal); R91.1 Solitary pulmonary nodule; Z85.118 Personal history of other malignant neoplasm of bronchus and lung; Z85.89 Personal history of malignant neoplasm of other organs and systems; Z92.3 Personal history of irradiation; Z85.9 Personal history of malignant neoplasm, unspecified
CPT/HCPCS: 78815; A9552

== ENCOUNTER → 2024-12-19 | Outpatient (CLI) | payer OTHER ==
--- NOTE | 2024-12-19 11:59 | CT ---
EXAMINATION TYPE: CT chest w con DATE OF EXAM: 12/19/2024 COMPARISON: Head CT 06/22/[address] chest 06/01/2024 CLINICAL INDICATION: Female, 64 years old with history of C34.11 MALIGNANT NEOPLASM OF UPPER LOBE, RI GHT BRO; [facility], Lung ca TECHNIQUE: CT scan of the chest is performed with IV Contrast, patient injected with 100 mL of Isovue 300. MIP Images are created on CT scanner and reviewed. 3D reconstructed images are created on an independent workstation and reviewed. CT DLP: 99.[address] CTDI: mGy Automated exposure control for dose reduction was used. FINDINGS: LUNGS: Spiculated nodule right upper lobe is again noted and measures 1.5 x 1.1 cm versus previous me asurement of 1.9 x 1.4 cm. There is also soft tissue adjacent to the aortic arch which did not show i ncreased uptake on PET/CT and measures about 1.9 x 1.2 cm. Left apical scarring and to a lesser exten t right apical scarring redemonstrated. Emphysematous bulla noted. No additional nodules or masses ap preciated. MEDIASTINUM: There are no greater than 1 cm hilar or mediastinal lymph nodes. No pericardial effusi on is seen. OTHER: No additional significant abnormality is seen. IMPRESSION: 1. Right upper lobe spiculated nodule is slightly smaller in size relative to the prior study. Malign rola is not excluded. 2. Stable soft tissue adjacent to the aortic arch which is of uncertain etiology. Follow-up recommendations for incidental pulmonary nodules are per [employer] or [employer]. [facility], , 12/19/2024 11:57 AM
== END | disposition home or self-care (01) ==
LOC: RADCTMAIN 10:56
PROVIDERS: ATTEND Radiology Radiation Oncology
DX: C34.11 Malignant neoplasm of upper lobe, right bronchus or lung (principal); C34.12 Malignant neoplasm of upper lobe, left bronchus or lung; R91.8 Other nonspecific abnormal finding of lung field; Z92.3 Personal history of irradiation; Z85.89 Personal history of malignant neoplasm of other organs and systems; Z85.118 Personal history of other malignant neoplasm of bronchus and lung
CPT/HCPCS: 71260; Q9967

== ENCOUNTER 2025-02-06 00:32 | Emergency (ER) | payer OTHER ==
[2025-02-06 00:38] VITALS: TEMP 97.7
--- NOTE | 2025-02-06 01:04 | XR ---
EXAMINATION TYPE: XR chest 2V DATE OF EXAM: 02/06/2025 12:55 AM COMPARISON: PET/CT 06/22/2024 CLINICAL INDICATION: Female, 64 years old with history of Hemoptysis, serial lung cancer TECHNIQUE: XR chest 2V view(s) obtained. FINDINGS: The heart size is normal. The pulmonary vasculature is normal. Mild increased lung markings in the right suprahilar region. This correlates with the abnormal uptake on the PET/CT suspicious for neoplasm. Appears to be some hyperinflation. Correlate for COPD. Slight increased retrosternal airspace is present. IMPRESSION: 1. Uptake within the right suprahilar region likely related to the patient's lung cancer. 2. COPD [facility], Workstation: [id number], 02/06/2025 1:02 AM
--- NOTE | 2025-02-06 01:30 | ED ---
General Adult HPI - General Chief complaint: ENT Stated complaint: Coughing up blood Time Seen by Provider: 02/06/25 00:47 Source: patient, RN notes reviewed Mode of arrival: ambulatory Limitations: no limitations - History of Present Illness Initial comments: This is a 64-year-old female former smoker with history including squamous cell carcinoma and lung CA presenting for hemoptysis x 1 hour. Patient endorses 40- year smoking history, quitting in 2007. Patient endorses upcoming appointment with Dr. Waters in May 2025. Patient states hemoptysis has resolved upon arrival to ER. Denies fever, chills, fatigue, chest pain, dyspnea. Onset/Timin -: hour(s) - Related Data Home Medications Medication Instructions Recorded Confirmed Ibuprofen [Advil] 200 mg PO Q6H PRN 02/06/25 02/06/25 Allergies Allergy/AdvReac Type Severity Reaction Status Date / Time codeine AdvReac Nausea & Verified 02/06/25 11:29 Vomiting Review of Systems ROS Statement: Those systems with pertinent positive or pertinent negative responses have been documented in the HPI. ROS Other: All systems not noted in ROS Statement are negative. Past Medical History Past Medical History: Cancer, Hypertension Additional Past Medical History / Comment(s): Squamous cell carcinoma of neck., Vides Parkinsons White Syndrome History of Any Multi-Drug Resistant Organisms: None Reported Additional Past Surgical History / Comment(s): Neck, heart surgery, WPW Past Psychological History: No Psychological Hx Reported Smoking Status: Former smoker Past Alcohol Use History: None Reported Past Drug Use History: Marijuana General Exam Limitations: no limitations General appearance: alert, in no apparent distress Head exam: Present: atraumatic, normocephalic, normal inspection Eye exam: Present: normal appearance, PERRL, EOMI. Absent: scleral icterus, conjunctival injection, periorbital swelling ENT exam: Present: normal exam, mucous membranes moist Neck exam: Present: normal inspection. Absent: tenderness, meningismus, lymphadenopathy Respiratory exam: Present: decreased breath sounds. Absent: respiratory distress, wheezes, rales, rhonchi, stridor, accessory muscle use, prolonged expiratory Cardiovascular Exam: Present: regular rate, normal rhythm, normal heart sounds. Absent: systolic murmur, diastolic murmur, rubs, gallop, clicks GI/Abdominal exam: Present: soft, normal bowel sounds. Absent: distended, tenderness, guarding, rebound, rigid Extremities exam: Present: normal inspection, full ROM, normal capillary refill. Absent: tenderness, pedal edema, joint swelling, calf tenderness Back exam: Present: normal inspection Neurological exam: Present: alert, oriented X3, CN II-XII intact Psychiatric exam: Present: normal affect, normal mood Skin exam: Present: warm, dry, intact, normal color. Absent: rash Course Vital Signs 02/06/25 02/06/25 00:37 01:32 Temperature 97.7 F Pulse Rate 110 H 90 Respiratory 16 18 Rate Blood Pressure 114/78 126/81 O2 Sat by Pulse 98 95 Oximetry Medical Decision Making - Medical Decision Making Was pt. sent in by a medical professional or institution (, PA, STOCK BUYER, urgent care, hospital, or fci...) When possible be specific @ -No Did you speak to anyone other than the patient for history (EMS, parent, family, police, friend...)? What history was obtained from this source @ -No Did you review nursing and triage notes (agree or disagree)? Why? @ -I reviewed and agree with nursing and triage notes Were old charts reviewed (outside hosp., previous admission, EMS record, old EKG, old radiological studies, urgent care reports/EKG's, fci records)? Report findings @ -PET scan results from 07/02/2024 reviewed indicating likely malignant suprahilar neoplasm in right lung Differential Diagnosis (chest pain, altered mental status, abdominal pain women, abdominal pain men, vaginal bleeding, weakness, fever, dyspnea, syncope, headache, dizziness, GI bleed, back pain, seizure, CVA, palpatations, mental health, musculoskeletal)? @ -Differential Dyspnea: Coronary syndrome, arrhythmia, tamponade, asthma, COPD, pulmonary embolism, pneumonia, pneumothorax, pulmonary effusion, anaphylaxis, diabetic ketoacidosis, flailed chest, pulmonary contusion, diaphragmatic rupture, anemia, neuromuscula r, this is not meant to be an all-inclusive list. EKG interpreted by me (3pts min.). @ -Not done X-rays interpreted by me (1pt min.). @ -CXR shows increased lung markings in right suprahilar region likely related to patient's lung CA with hyperinflation indicating COPD. CT interpreted by me (1pt min.). @ -None done U/S interpreted by me (1pt. min.). @ -None done What testing was considered but not performed or refused? (CT, X-rays, U/S, labs)? Why? @ -None What meds were considered but not given or refused? Why? @ -None Did you discuss the management of the patient with other professionals (professionals i.e. Dr., PA, STOCK BUYER, lab, RT, psych nurse, social insurance administrator, expanding machine operator, teacher, staff air defense officer, case management coordinator)? Give summary @ -No Was smoking cessation discussed for >3mins.? @ -No Was critical care preformed (if so, how long)? @ -No Were there social determinants of health that impacted care today? How? (Homelessness, low income, unemployed, alcoholism, drug addiction, transportation, low edu. Level, literacy, decrease access to med. care, assisted, rehab)? @ -No Was there de-escalation of care discussed even if they declined (Discuss DNR or withdrawal of care, Hospice)? DNR status @ -No What co-morbidities impacted this encounter? (DM, HTN, Smoking, COPD, CAD, Cancer, CVA, ARF, Chemo, Hep., AIDS, mental health diagnosis, sleep apnea, morbid obesity)? @ -None Was patient admitted / discharged? Hospital course, mention meds given and route, prescriptions, significant lab abnormalities, going to OR and other pertinent info. @ -CXR shows increased lung markings in right suprahilar region likely related to patient's lung CA with hyperinflation indicating COPD. Patient's hemoptysis has resolved spontaneously with no concerning physical exam or CXR findings. Advised follow-up with PCP and Dr. Waters regarding hemoptysis for further evaluation and workup. Discussed patient with Dr. Tai. Undiagnosed new problem with uncertain prognosis? @ -No Drug Therapy requiring intensive monitoring for toxicity (Heparin, Nitro, Insulin, Cardizem)? @ -No Were any procedures done? @ -No Diagnosis/symptom? @ -Hemoptysis Acute, or Chronic, or Acute on Chronic? @ -Acute Uncomplicated (without systemic symptoms) or Complicated (systemic symptoms)? @ -Uncomplicated Side effects of treatment? @ -No Exacerbation, Progression, or Severe Exacerbation? @ -No Poses a threat to life or bodily function? How? (Chest pain, USA, VA, pneumonia, PE, COPD, DKA, ARF, appy, cholecystitis, CVA, Diverticulitis, Homicidal, Suicidal, threat to staff... and all critical care pts) @ -No Disposition Clinical Impression: Hemoptysis Disposition: HOME SELF-CARE Condition: Good Instructions (If sedation given, give patient instructions): Coughing Up Blood (Hemoptysis) (ED) Additional Instructions: Call for sooner follow-up appointment with Dr. Waters if hemoptysis (coughing up blood) recurs. Is patient prescribed a controlled substance at d/c from ED?: No Referrals: None,Stated [Primary Care Provider] - 1-2 days Guille Waters MD [STAFF PHYSICIAN] - 1-2 days Time of Disposition: 01:30
[2025-02-06 01:40] VITALS: BP 126/81; PULSE 90; RESP 18
== END 2025-02-06 01:41 | disposition home or self-care (01) ==
LOC: EC 00:32
DX: R04.2 Hemoptysis (principal); Z87.891 Personal history of nicotine dependence; Z88.5 Allergy status to narcotic agent
CPT/HCPCS: 71046; 99283

== ENCOUNTER 2025-02-06 09:13 | Emergency (ER) | payer OTHER ==
--- NOTE | 2025-02-06 09:36 | ED ---
General Adult HPI - General Chief complaint: Shortness of Breath Stated complaint: coughing up blood Time Seen by Provider: 02/06/25 09:16 Source: patient, family Mode of arrival: wheelchair Limitations: no limitations - History of Present Illness Initial comments: Dictation was produced using [employer] dictation software. please excuse any grammatical, word or spelling errors. Chief Complaint: 64-year-old female presents to the ER for hemoptysis History of Present Illness: Patient 64-year-old female she has past medical history of lung cancer was seen here in the emergency department earlier this morning was discharged. States that since being discharged she has had persistent hemoptysis. She followed up with her radiation oncologist told her to come to the ER again for CT imaging of the chest. Patient has been having coughing fits. Denies any shortness of breath. Daughter at the bedside states that patient has had min mopped assist. She does present a picture showed bright red blood clots in the toilet The ROS documented in this emergency department record has been reviewed and confirmed by me. Those systems with pertinent positive or negative responses have been documented in the HPI. All other systems are other negative and/or noncontributory. - Related Data Home Medications Medication Instructions Recorded Confirmed Ibuprofen [Advil] 200 mg PO Q6H PRN 02/06/25 02/06/25 Allergies Allergy/AdvReac Type Severity Reaction Status Date / Time codeine AdvReac Nausea & Verified 02/06/25 11:29 Vomiting Review of Systems ROS Statement: Those systems with pertinent positive or pertinent negative responses have been documented in the HPI. ROS Other: All systems not noted in ROS Statement are negative. Past Medical History Past Medical History: Cancer, Hypertension Additional Past Medical History / Comment(s): Squamous cell carcinoma of neck., Vides Parkinsons White Syndrome History of Any Multi-Drug Resistant Organisms: None Reported Additional Past Surgical History / Comment(s): Neck, heart surgery, WPW Past Psychological History: No Psychological Hx Reported Smoking Status: Former smoker Past Alcohol Use History: None Reported Past Drug Use History: Marijuana General Exam - General Exam Comments Initial Comments: PHYSICAL EXAM: General Impression: Alert and oriented x3, not in acute distress HEENT: Normocephalic atraumatic, extra-ocular movements intact, pupils equal and reactive to light bilaterally, mucous membranes moist, blood in the posterior oropharynx Cardiovascular: Heart regular rate and rhythm Chest: Able to complete full sentences, no retractions, no tachypnea Abdomen: abdomen soft, non-tender, non-distended, no organomegaly Musculoskeletal: Pulses present and equal in all extremities, no peripheral edema Motor: no focal deficits noted Neurological: CN II-XII grossly intact, no focal motor or sensory deficits noted Skin: Intact with no visualized rashes Psych: Normal affect and mood Limitations: no limitations Course Vital Signs 02/06/25 02/06/25 02/06/25 09:14 09:29 10:16 Temperature 97.8 F Pulse Rate 125 H 97 Respiratory 20 20 16 Rate Blood Pressure 190/96 192/93 O2 Sat by Pulse 95 96 Oximetry 02/06/25 11:26 Temperature Pulse Rate 92 Respiratory 18 Rate Blood Pressure 193/99 O2 Sat by Pulse 95 Oximetry EKG Findings - EKG Comments: EKG Findings:: My EKG interpretation: Ventricular rate 105, sinus tachycardia,. 121, cures 85, QTc 390. No IN prolongation, no QTC prolongation. ST depressions in inferior leads and V5. Slightly changed compared EKG from November 10, 2018 Medical Decision Making - Medical Decision Making Was pt. sent in by a medical professional or institution (, PA, MD DO RESIDENT URGENT CARE, urgent care, hospital, or fci...) When possible be specific @ -No Did you speak to anyone other than the patient for history (EMS, parent, family, police, friend...)? What history was obtained from this source @ -No Did you review nursing and triage notes (agree or disagree)? Why? @ -I reviewed and agree with nursing and triage notes Were old charts reviewed (outside hosp., previous admission, EMS record, old EKG, old radiological studies, urgent care reports/EKG's, fci records)? Report findings @ -No old charts were reviewed Differential Diagnosis (chest pain, altered mental status, abdominal pain women, abdominal pain men, vaginal bleeding, musculoskeletal, weakness, fever, dyspnea, syncope, headache, dizziness, GI bleed, back pain, seizure, CVA, palpat ations, mental health)? @ -Pulmonary embolism, pulmonary hemorrhage, Angelica-Chaudhari EKG interpreted by me (3pts min.). @ -See above X-rays interpreted by me (1pt min.). @ -None done CT interpreted by me (1pt min.). @ -CT angiography shows no pulm embolism. There does appear to be pulmonary masses suspicious for malignancy U/S interpreted by me (1pt. min.). @ -None done What testing was considered but not performed or refused? (CT, X-rays, U/S, labs)? Why? @ -None What meds were considered but not given or refused? Why? @ -None Was smoking cessation discussed for >3mins.? @ -No Were there social determinants of health that impacted care today? How? (Homelessness, low income, unemployed, alcoholism, drug addiction, transportation, low edu. Level, literacy, decrease access to med. care, long-term, rehab)? @ -No Was there de-escalation of care discussed even if they declined (Discuss DNR or withdrawal of care, Hospice)? DNR status @ -No What co-morbidities impacted this encounter? (DM, HTN, Smoking, COPD, CAD, Cancer, CVA, ARF, Chemo, Hep., AIDS, mental health diagnosis, sleep apnea, morbid obesity)? @ -Lung cancer Was patient admitted / discharged? Hospital course, mention meds given and route, prescriptions, significant lab abnormalities, going to OR and other pertinent info. @ -64-year-old female presents to the emergency department with hemoptysis. Patient was seen here earlier and was told to come to the ER to get a CT by her radiation oncologist. Vital signs stable. Patient well-appearing at the bedside. Laboratory evaluation is unremarkable. CT angiography shows residual mass no pulmonary embolism. Was strongly recommended patient to be admitted for worsening hemoptysis. Patient refused states that she needs to be discharged to take care of her dogs. Patient understands the risk of discharge which may include worsening morbidity mortality and even from respiratory failure or acute blood loss anemia. Patient understands the risks will return to the emergency department with any worsening conditions. Patient advised to follow- up closely with ethylbenzene oxidizer Did you discuss the management of the patient with other professionals (professionals i.e. , PA, MD DO RESIDENT URGENT CARE, lab, RT, psych nurse, professor of social work, machine setup operator, teacher, lodge officer, welfare case worker)? Give summary @ -No Was critical care preformed (if so, how long)? @ -No Undiagnosed new problem with uncertain prognosis? @ -No Drug Therapy requiring intensive monitoring for toxicity (Heparin, Nitro, Insulin, Cardizem)? @ -No Were any procedures done? @ -No Diagnosis/symptom? Acute, or Chronic, or Acute on Chronic? Uncomplicated (without systemic symptoms) or Complicated (systemic symptoms)? @ -Hemoptysis Side effects of treatment? @ -No Exacerbation, Progression, or Severe Exacerbation? @ -No Poses a threat to life or bodily function? How? (Chest pain, USA, CA, pneumonia, PE, COPD, DKA, ARF, appy, cholecystitis, CVA, Diverticulitis, Homicidal, Suicidal, threat to staff... and all critical care pts) @ -yes - Lab Data Result diagrams: 02/06/25 09:47 02/06/25 09:47 Lab Results 02/06/25 02/06/25 02/06/25 Range/Units 09:40 09:47 09:47 WBC 8.24 (4.50-10.00) 10*3/uL RBC 4.80 (4.10-5.20) 10*6/uL Hgb 14.0 (12.0-15.0) g/dL Hct 41.1 (37.2-46.3) % MCV 85.6 (80.0-97.0) fL MCH 29.2 (27.0-32.0) pg MCHC 34.1 (32.0-37.0) g/dL Plt Count 471 H (140-440) 10*3/uL MPV 9.6 (9.5-12.2) fL Immature Gran % (Auto) 0.2 % Neutrophils % 73.7 % Lymphocytes % 17.0 % Monocytes % 7.0 % Eosinophils % 1.1 % Basophils % 1.0 % Immature Gran # 0.02 (0.00-0.04) 10*3/uL Neutrophils # 6.07 (1.80-7.70) 10*3/uL Lymphocytes # 1.40 (0.90-5.00) 10*3/uL Monocytes # 0.58 (0.20-1.00) 10*3/uL Eosinophils # 0.09 (0.04-0.35) 10*3/uL Basophils # 0.08 (0.00-0.10) 10*3/uL PT 11.1 (10.0-12.5) sec INR 1.0 (<1.2) APTT 22.4 (22.0-30.0) sec Sodium (137-145) mmol/L Potassium (3.5-5.1) mmol/L Chloride (98-107) mmol/L Carbon Dioxide (22-30) mmol/L Anion Gap mmol/L BUN (7-17) mg/dL Creatinine (0.52-1.04) mg/dL Est GFR (CKD-EPI)AfAm (>60 ml/min/1.73 sqM) Est GFR (CKD-EPI)NonAf (>60 ml/min/1.73 sqM) Glucose (74-99) mg/dL Calcium (8.4-10.2) mg/dL Blood Type A Positive Blood Type Confirm Blood Type Recheck No Previous Record Bld Type Recheck Status CABO Indicated Antibody Screen NEGATIVE Spec Expiration Date 02/09/2025 - 234602/06/25 02/06/25 Range/Units 09:47 10:06 WBC (4.50-10.00) 10*3/uL RBC (4.10-5.20) 10*6/uL Hgb (12.0-15.0) g/dL Hct (37.2-46.3) % MCV (80.0-97.0) fL MCH (27.0-32.0) pg MCHC (32.0-37.0) g/dL Plt Count (140-440) 10*3/uL MPV (9.5-12.2) fL Immature Gran % (Auto) % Neutrophils % % Lymphocytes % % Monocytes % % Eosinophils % % Basophils % % Immature Gran # (0.00-0.04) 10*3/uL Neutrophils # (1.80-7.70) 10*3/uL Lymphocytes # (0.90-5.00) 10*3/uL Monocytes # (0.20-1.00) 10*3/uL Eosinophils # (0.04-0.35) 10*3/uL Basophils # (0.00-0.10) 10*3/uL PT (10.0-12.5) sec INR (<1.2) APTT (22.0-30.0) sec Sodium 140 (137-145) mmol/L Potassium 3.3 L (3.5-5.1) mmol/L Chloride 101 (98-107) mmol/L Carbon Dioxide 30 (22-30) mmol/L Anion Gap 9 mmol/L BUN 10 (7-17) mg/dL Creatinine 0.63 (0.52-1.04) mg/dL Est GFR (CKD-EPI)AfAm >90 (>60 ml/min/1.73 sqM) Est GFR (CKD-EPI)NonAf >90 (>60 ml/min/1.73 sqM) Glucose 137 H (74-99) mg/dL Calcium 10.1 (8.4-10.2) mg/dL Blood Type Blood Type Confirm A Positive Blood Type Recheck Bld Type Recheck Status Antibody Screen Spec Expiration Date Disposition Clinical Impression: Hemoptysis Disposition: HOME SELF-CARE Condition: Fair Instructions (If sedation given, give patient instructions): Coughing Up Blood (Hemoptysis) (ED) Is patient prescribed a controlled substance at d/c from ED?: No Referrals: Tg Ivan MD [STAFF PHYSICIAN] - 1-2 days Time of Disposition: 11:30
[2025-02-06 09:53] LABS: Basophils # (A) 0.08 10*3/uL (0.00-0.10); Eosinophils # (A) 0.09 10*3/uL (0.04-0.35); Eosinophils % (A) 1.1 %; HCT 41.1 % (37.2-46.3); MCH 29.2 pg (27.0-32.0); MCHC 34.1 g/dL (32.0-37.0); MCV 85.6 fL (80.0-97.0); Mean Platelet Volume 9.6 fL (9.5-12.2); Monocytes # (A) 0.58 10*3/uL (0.20-1.00); Neutrophils # (A) 6.07 10*3/uL (1.80-7.70); Neutrophils % (A) 73.7 %; Platelet Count 471 10*3/uL (140-440); WBC 8.24 10*3/uL (4.50-10.00)
[2025-02-06 10:08] LABS: African American GFR (CKD) >90 (>60 ml/min/1.73 sqM); Anion Gap 9 mmol/L; Blood Urea Nitrogen 10 mg/dL (7-17); Calcium 10.1 mg/dL (8.4-10.2); Carbon Dioxide 30 mmol/L (22-30); Chloride 101 mmol/L (98-107); Glucose 137 mg/dL (74-99); Non-African American GFR(CKD) >90 (>60 ml/min/1.73 sqM); Potassium 3.3 mmol/L (3.5-5.1); Sodium 140 mmol/L (137-145)
[2025-02-06 10:36] LABS: Partial Thromboplastin Time 22.4 sec (22.0-30.0); Prothrombin Time 11.1 sec (10.0-12.5)
--- NOTE | 2025-02-06 10:57 | CT ---
EXAMINATION TYPE: CT angio chest CT DLP: 159.5 mGycm, Automated exposure control for dose reduction was used. DATE OF EXAM: 02/06/2025 10:41 AM COMPARISON: CT chest 12/19/2024, 06/01/1994, 11/15/2023, PET CT 06/22/2024 CLINICAL INDICATION:Female, 64 years old with history of hemoptysis; HEMOPTYSIS, HX OF LUNG CA TECHNIQUE/CONTRAST: CTA scan of the thorax is performed with IV Contrast, patient injected with 60ml mL of Isovue 370, pu lmonary embolism protocol. MIP images are created and reviewed. FINDINGS: Pulmonary Artery: There is no evidence for a filling defect within the pulmonary vasculature to sugge st acute pulmonary embolism. The pulmonary artery is of normal size. Lungs/Pleura: No pleural effusion, pneumothorax, focal consolidation. Biapical pleural parenchymal sc arring redemonstrated. Moderate centrilobular and paraseptal emphysema changes with upper lobe predom inance. Similar irregular nodular opacity within the right upper lung peribronchial region measuring grossly up to 1.6 cm. Demonstrated some FDG activity on prior PET/CT. Stable soft tissue along the po sterior aspect of the aortic arch measuring up to 1.6 cm. No significant FDG activity in prior PET/CT . No new or enlarging pulmonary nodules. Airway: Large airways are patent. There is debris/secretions identified within the left lower lobe br onchi. Heart: Size within normal limits. No pericardial effusion. Mild to moderate coronary artery calcifica tions present. Vasculature: Moderate atherosclerotic calcifications are present throughout the aorta and its branche s. Short segment high-grade stenosis just after the origin of the left subclavian artery secondary to calcified and noncalcified plaque. Bovine aortic arch. At least mild to moderate stenosis at the jeff gin left renal artery secondary to calcified plaque. Mediastinum: No evidence of adenopathy. Musculoskeletal: No acute osseous abnormalities. Sternotomy wires. No aggressive osseous lesion. Dege nerative changes of the visualized cervical spine. Soft Tissues: Unremarkable. Lower neck: No significant findings. Upper Abdomen: Pancreatic divisum. Redemonstration of a 1.4 cm cystic lesion within the pancreatic he ad. IMPRESSION: 1. No evidence of pulmonary embolism. 2. Debris/secretions identified within the left lower lobe bronchi. Correlate for aspiration. 3. Similar spiculated nodular opacity within the right upper lobe and soft tissue opacity within the posterior left upper lung abutting the aortic arch. Residual malignancy is not excluded. Attention on follow-up exam. 4. High-grade short segment stenosis just after the origin of the left subclavian artery secondary to calcified and noncalcified plaque. 5. Pancreatic divisum with redemonstration of a 1.4 cm cystic lesion within the pancreatic head. May represent a sidebranch IPMN versus pseudocyst versus other etiologies. Recommend further evaluation w ith outpatient MR abdomen with IV contrast (pancreatic mass protocol). [facility], , 02/06/2025 10:54 AM
[2025-02-06 11:27] VITALS: BP 193/99; PULSE 92; RESP 18
[2025-02-06 11:44] VITALS: TEMP 97.7
== END 2025-02-06 11:44 | disposition home or self-care (01) ==
LOC: EC 09:13
DX: R04.2 Hemoptysis (principal); Z85.118 Personal history of other malignant neoplasm of bronchus and lung; Z87.891 Personal history of nicotine dependence; Z88.5 Allergy status to narcotic agent
CPT/HCPCS: 36415; 93005; 86900; 86901; 80048; 85025; 85610; 85730; 86850; 71275; 99285; Q9967